=== PATIENT | female | born 1995 | race Two or more races ===

== ENCOUNTER 2020-01-20 10:50 | Emergency (ER) | payer MEDICAID ==
[~2020-01-20] VITALS: Ht 160 cm; Wt 66.7 kg
--- NOTE | 2020-01-20 11:10 | NUR ---
Patient to ER bed 2 to gown for evaluation. Side rails up.
[2020-01-20] MEDS ORDERED: NACL 0.9% 1,000 ML IV ONE (11:14)
--- NOTE | 2020-01-20 11:15 | NUR ---
Upon triage of patient, taking vital signs. Patient states she is here for MRI and for EEG. She wanted them completed today as she did not want to follow up with her primary and do a neuro consult. Patient informed we have MRI during the week, but not on weekend, and EEG is through a contracted company. Patient then informed me that she would like to leave without being seen by our MD. MD Delgado informed, patient ambulatory.
--- NOTE | 2020-01-20 11:15 | NUR ---
Patient left without being seen.
== END 2020-01-20 11:15 | disposition left against medical advice (07) ==
LOC: SED 10:50
DX: R56.9 Unspecified convulsions (principal); Z53.21 Procedure and treatment not carried out due to patient leaving prior to being seen by health care provider

== ENCOUNTER 2020-01-21 10:59 | Emergency (ER) | payer MEDICAID ==
[~2020-01-21] VITALS: Ht 157.5 cm; Wt 66.2 kg
[2020-01-21 11:00] VITALS: BP_SYST 134
--- NOTE | 2020-01-21 11:10 | NUR ---
Patient to ER bed 07 to gown for evaluation. Side rails up.
--- NOTE | 2020-01-21 11:12 | NUR ---
Pt brought by self, ambulatory, A&Ox4, pt presents to ER for follow up , pt states she had a first time poss seizure yesterday and requesting MRI today , pt had CT yesterday , pt denies pain, skin pink and warm, cap refill <3, respirations even and unlabored.
--- NOTE | 2020-01-21 11:15 | NUR ---
Dr Buck at bedside examining patient
[2020-01-21 11:30] VITALS: BP_SYST 132
--- NOTE | 2020-01-21 11:31 | NUR ---
Patient given written and verbal discharge instructions and verbalizes understanding. ER MD discussed with patient the results and treatment provided. Patient in stable condition. ID arm band removed. No Rx given. Patient educated on pain management and to follow up with PMD. Pain Scale 0/10. Opportunity for questions provided and answered. Medication side effect fact sheet provided.
== END 2020-01-21 11:30 | disposition home or self-care (01) ==
LOC: SED 10:59
DX: R56.9 Unspecified convulsions (principal); R03.0 Elevated blood-pressure reading, without diagnosis of hypertension
CPT/HCPCS: 99281

== ENCOUNTER 2023-04-17 08:46 | Emergency (ER) | payer MEDICAID ==
[~2023-04-17] VITALS: Ht 165.1 cm; Wt 56.7 kg
[2023-04-17 08:53] VITALS: BP_SYST 121; PULSE 85; RESP 18; TEMP 98; O2SAT 97
[2023-04-17] MEDS ORDERED: DIPHENHYDRAMINE INJ 50 MG/ML VIAL IVP ONE (09:15)
[2023-04-17] MEDS ORDERED: levETIRAcetam 500 MG TABLET PO ONE (09:15)
[2023-04-17] MEDS ORDERED: METOCLOPRAMIDE HCL 10 MG/2 ML VIAL IVP ONE (09:15)
[2023-04-17] MEDS ORDERED: HYDR-3927 PO (10:54)
[2023-04-17] MEDS ORDERED: IBUP-1969 PO (10:54)
[2023-04-17 11:25] VITALS: BP_SYST 111; PULSE 64; RESP 16; TEMP 98; O2SAT 100
[2023-04-17 11:26] LABS: CLARITY/URINE CLEAR (CLEAR); COLOR,URINE YELLOW (YELLOW); GLUCOSE,URINE NEGATIVE (NEGATIVE); PROTEIN URINE NEGATIVE (NEGATIVE)
[2023-04-17 11:27] LABS: BILIRUBIN,URINE NEGATIVE (NEGATIVE); BLOOD, URINE TRACE (NEGATIVE); KETONES,URINE NEGATIVE (NEGATIVE); LEUKOCYTE ESTERASE ,URINE NEGATIVE (NEGATIVE); NITRITE, URINE NEGATIVE (NEGATIVE); UROBILINOGEN,URINE 0.2 (0.2-1.0)
[2023-04-17 11:33] LABS: BACTERIA,URINE None Seen /HPF (None Seen); CALCIUM OXALATE CRYSTALS,UR None Seen /HPF (None Seen); CALCIUM PHOSPHATE CRYSTALS,UR None Seen /HPF (None Seen); HYALINE CASTS, URINE None Seen /LPF (None Seen); OTHER CRYSTALS,URINE None Seen /HPF (None Seen); RBC,URINE 0-3 /HPF (0-3); TRICHOMONAS,URINE None Seen /HPF (None Seen); TRIPLE PHOSPHATE CRYSTAL,UR None Seen /HPF (None Seen); URIC ACID CRYSTALS,URINE None Seen /HPF (None Seen); URINE AMORPHOUS PHOSPHATES None Seen /HPF (None Seen); URINE AMORPHOUS URATE None Seen /HPF (None Seen); WBC,URINE NONE SEEN /HPF (0-3); YEAST,URINE None Seen /HPF (None Seen)
[2023-04-17 11:34] LABS: COARSE GRANULAR CASTS,URINE None Seen /LPF (None Seen); FINE GRANULAR CASTS,URINE None Seen /LPF (None Seen); MUCUS,URINE 1+ /LPF (None Seen); OTHER CASTS, URINE None Seen /LPF (None Seen); WAXY CASTS,URINE None Seen /LPF (None Seen)
== END 2023-04-17 11:24 | disposition home or self-care (01) ==
LOC: SED 08:46
DX: G43.909 Migraine, unspecified, not intractable, without status migrainosus (principal); Z88.1 Allergy status to other antibiotic agents; Z88.6 Allergy status to analgesic agent; Z79.899 Other long term (current) drug therapy
CPT/HCPCS: 99284; 96374; 96375; 81000; J1200; J2765